=== PATIENT | male | born 1960 | race Caucasian/White ===

== ENCOUNTER 2024-05-21 18:05 | Inpatient (IN) | payer BC ==
[~2024-05-21] VITALS: Ht 172.7 cm; Wt 89.8 kg
[2024-05-21] VITALS (9 sets, daily range): BP systolic 100–130; BP diastolic 61–91; PULSE 69–91; RESP 22–34; TEMP 98.2–98.7; O2SAT 98
[2024-05-21 18:27] LABS: BASOPHILS # (AUTO) 0.07 K/uL (0.00-0.20); BASOPHILS % (AUTO) 0.4 % (0.0-5.0); EOSINOPHILS # (AUTO) 0.04 K/uL (0.00-0.70); EOSINOPHILS % (AUTO) 0.2 % (0.0-8.0); HEMATOCRIT 50.2 % (42-54); LYMPHOCYTES # (AUTO) 1.1 K/uL (1.0-4.8); MEAN CORPUSCULAR HEMOGLOBIN 27.6 pg (27.0-33.0); MEAN CORPUSCULAR HGB CONC 32.5 g/dL (32.0-36.0); MEAN CORPUSCULAR VOLUME 85.1 fL (79-99); MONOCYTES # (AUTO) 0.7 K/uL (0.1-1.0); MONOCYTES % (AUTO) 3.7 % (3.0-13.0); NEUTROPHILS % (AUTO) 89.1 % (40.0-77.0); PLATELET COUNT (AUTO) 390 K/uL (130-400); RED CELL DISTRIBUTION WIDTH 12.6 % (11.0-15.5); WHITE BLOOD COUNT (AUTO) 17.9 K/uL (4.8-10.8)
[2024-05-21 18:35] LABS: CREATININE 1.7 mg/dL (0.5-1.3)
[2024-05-21 18:36] LABS: INR 1.04 (0.85-1.15)
[2024-05-21 18:37] LABS: PARTIAL THROMBOPLASTIN TIME 26.8 SEC (26.3-35.5)
[2024-05-21] MEDS: MIDAZOLAM HCL 5 MG/ML 2ML VIAL IV ONE ×2 (18:45→19:00)
[2024-05-21 18:47] LABS: B-TYPE NATRIURETIC PEPTIDE 43 pg/mL (0-100)
[2024-05-21 18:51] LABS: MAGNESIUM 1.8 mg/dL (1.80-2.40)
[2024-05-21] MEDS: 0.9%NACL 1000ML 1,000 ML IV ONE (18:59)
[2024-05-21] MEDS ORDERED: 0.9%NACL 1000ML 1,000 ML IV SCH (19:00)
[2024-05-21] MEDS: metoPROLOL tartRATE 1 MG/ML 5ML VIAL IV ONE (19:00)
[2024-05-21] MEDS: MIDAZOLAM HCL 1 MG/ML 2ML VIAL ONE (19:00)
[2024-05-21] MEDS ORDERED: MIDAZOLAM HCL 1 MG/ML 5ML VIAL IVP ONE (19:00)
--- NOTE | 2024-05-21 19:09 | ERN ---
General Chief Complaint: Palpitations Stated Complaint: PALPITATIONS Time Seen by MD: 18:08 Source: patient History of Present Illness Initial Comments PATIENT IS A 63-YEAR-OLD MALE COMING IN TO BE EVALUATED FOR RACING HEART. PER EMS PATIENT HAS A HEART RATE OF IN THE 250S AND WAS SHOCKED DUE TO HYPOTENSION. PATIENT DOES HAVE A HISTORY OF A ARRHYTHMIAS. Allergies: Uncoded Allergies: nka (Allergy, Unknown, 05/21/24) Past Medical History Past Medical History: A-Fib, Diabetes-Type II Medical History Other: ABLATION, OBESE Past Surgical History: None ROS Dictation CONSTITUTIONAL: NO CHILLS, NO FEVER, NO WEAKNESS, DIAPHORESIS, NO MALAISE. HEAD/FACE: NO SIGNS OF TRAUMA. EENT: NO EYE PAIN, NO BLURRED VISION, NO TEARING, NO DOUBLE VISION, NO EAR PAIN, NO EAR DISCHARGE, NO NOSE PAIN, NO NASAL CONGESTION, NO THROAT PAIN, NO THROAT SWELLING, NO MOUTH PAIN. RESPIRATORY: NO COUGH, NO ORTHOPNEA, NO SOB, NO STRIDOR, NO WHEEZING. CARDIOVASCULAR: NO CHEST PAIN, NO EDEMA, NO PALPITATIONS, NO SYNCOPE. GASTROINTESTINAL/ABDOMINAL: NO ABDOMINAL PAIN, NO CONSTIPATION, NO DIARRHEA, NO NAUSEA, NO VOMITING. GENITOURINARY: NO ABNORMAL DISCHARGE, NO DYSURIA, NO FREQUENT URINATION, NO HEMATURIA. NO COMPLAINTS OF PAIN IN THE GENITALS. MUSCULOSKELETAL: NO BACK PAIN, NO GOUT, NO JOINT PAIN, NO JOINT SWELLING, NO MUSCLE PAIN, NO MUSCLE STIFFNESS, NO NECK PAIN. INTEGUMENTARY: NO CHANGE IN COLOR, NO CHANGE IN HAIR/NAILS, NO DRYNESS, NO LESION, NO LUMPS, NO RASH. NEUROLOGICAL/PSYCH: NO ANXIETY, NOT DEPRESSED, NO EMOTIONAL PROBLEM, NO HEADACHE, NO NUMBNESS, NO PRE-EXISTING DEFICIT, NO HISTORY OF SEIZURES, NO TREMORS, NO WEAKNESS. HEMATOLOGIC/LYMPHATIC: NOT ANEMIC, NO HISTORY OF BLOOD CLOTS, NO APPARENT BLEEDING, NO BRUISING, GLANDS NOT SWOLLEN. ALL SYSTEMS NEGATIVE, EXCEPT NOTED. Physical Exam Physical Exam Dictation VITAL SIGNS: REVIEWED. GENERAL APPEARANCE: ALERT, ORIENTED X3, NO ACUTE DISTRESS, OBESE. HEAD AND FACE: NON-TRAUMATIC. EYES: PERRL, PINK CONJUNCTIVAS, EYELID NO TRAUMA, ANTERIOR CHAMBER CLEAR. EARS: PINNAS INTACT AND NO SIGNS OF TRAUMA OR ERYTHEMA. EAR CANALS CLEAR AND NO DISCHARGE. TMS NO ERYTHEMA. NOSE: NO DISCHARGE, NO BLEEDING. OROPHARYNX: MOUTH NORMAL, TEETH NO CARIES, TONGUE PINK. PHARYNX CLEAR, NO ERYT GIOVANNY. TONSILS NO EXUDATES, NO ABSCESSES NOTED. MUCOUS MEMBRANE MOIST. NECK: SUPPLE, NON-TENDER, NO THYROMEGALY, NO MASSES, NO JVD, NO BRUITS. BREAST: DEFERRED. CHEST: NO TENDERNESS, NO CREPITUS, NO PARADOXICAL MOVEMENT, NO RETRACTIONS. LUNGS: CLEAR, WELL-VENTILATED, SYMMETRIC, NO RALES, NO WHEEZING, NO RHONCHI, NO STRIDOR, GOOD BREATH SOUNDS BILATERALLY. HEART: REGULAR RATE, REGULAR RHYTHM, NO MURMUR, NO GALLOPS. VASCULAR: NO PERIPHERAL EDEMA. ABDOMEN: SOFT, POSITIVE BOWEL SOUNDS, NONDISTENDED, NO GUARDING, NONTENDER, NO REBOUND, NO MASSES NO HEPATOMEGALY, NO SPLENOMEGALY, NO GOULD'S SIGN, NO HERNIAS. RECTAL: DEFERRED. GENITAL: DEFERRED. NEUROLOGICAL: NORMAL SPEECH, GROSS MOTOR FUNCTION INTACT, GROSS SENSORY FUNCTION INTACT. MUSCULOSKELETAL: NECK NONTENDER, FULL RANGE OF MOTION, BACK NONTENDER, FULL RANGE OF MOTION. EXTREMITIES: NONTENDER, FULL RANGE OF MOTION. SKIN: COLOR PINK, DRY, NO TURGOR, NO RASH, NO LACERATIONS, NO ABRASIONS, NO CONTUSIONS. LYMPHATICS: DEFERRED. Results Laboratory and Microbiology Lab and Micro Result Laboratory Tests Test 05/21/24 18:20 White Blood Count 17.9 K/uL (4.8-10.8) H Red Blood Count 5.90 MIL/uL (4.50-6.20) Hemoglobin 16.3 g/dL (14.0-18.0) Hematocrit 50.2 % (42-54) Mean Corpuscular Volume 85.1 fL (79-99) Mean Corpuscular Hemoglobin 27.6 pg (27.0-33.0) Mean Corpuscular Hemoglobin Concent 32.5 g/dL (32.0-36.0) Red Cell Distribution Width 12.6 % (11.0-15.5) Platelet Count 390 K/uL (130-400) Mean Platelet Volume 9.6 fL (7.5-10.5) Immature Granulocyte % (Auto) 0.6 % (0-1) Neutrophils (%) (Auto) 89.1 % (40.0-77.0) H Lymphocytes (%) (Auto) 6.0 % (21.0-51.0) L Monocytes (%) (Auto) 3.7 % (3.0-13.0) Eosinophils (%) (Auto) 0.2 % (0.0-8.0) Basophils (%) (Auto) 0.4 % (0.0-5.0) Neutrophils # (Auto) 16.0 K/uL (1.8-7.7) H Lymphocytes # (Auto) 1.1 K/uL (1.0-4.8) Monocytes # (Auto) 0.7 K/uL (0.1-1.0) Eosinophils # (Auto) 0.04 K/uL (0.00-0.70) Basophils # (Auto) 0.07 K/uL (0.00-0.20) Absolute Immature Granulocyte (auto 0.10 K/uL (0-1) Nucleated Red Blood Cells 0.0 % (0.0-0.19) White Cell Morphology Comment See comments Prothrombin Time 11.0 SEC (9.6-11.6) Prothromb Time International Ratio 1.04 (0.85-1.15) Activated Partial Thromboplast Time 26.8 SEC (26.3-35.5) Sodium Level 137 mmol/L (136-145) Potassium Level 5.0 mmol/L (3.5-5.1) Chloride Level 99 mmol/L (101-111) L Carbon Dioxide Level 27 mmol/L (21-32) Blood Urea Nitrogen 22 mg/dL (7-18) H Creatinine 1.7 mg/dL (0.5-1.3) H Glomerular Filtration Rate Calc 44 mL/min (>90) Random Glucose 241 mg/dL (70-105) H Total Calcium 9.0 mg/dL (8.5-10.1) Magnesium Level 1.80 mg/dL (1.80-2.40) Total Creatine Kinase 53 U/L (21-232) Troponin I High Sensitivity 160 ng/L (4-75) *H B-Type Natriuretic Peptide 43 pg/mL (0-100) Labs Reviewed?: Yes EKG/XRAY/US/CT/MRI EKG Comment EKG 1ST ONE 05/21/2024 TIME 6:15 P.M. VENTRICULAR RATE 224 EXTREME TACHYCARDIA WIDE COMPLEX 2ND EKG 05/21/2024 TIME 7:00 P.M. VENTRICULAR RATE [address] WAVE ELEVATION OR DEPRESSION MDM MDM: Differential diagnosis: Rationale: Tests considered and ordered secondary to shared decision making include: labs, ECG and radiology Previous outside records reviewed: Old ER visits. Risk of complication and/or morbidity or mortality of patient management: None Medications-Per medication reconciliation Need for hospitalization: Patient does meet criteria for hospitalization. Need for emergency major/minor surgery: No There are no social concerns with this patient. Prescription drug management Prescriptions will include symptomatic care Patient's prior external medical records from other ER visits were reviewed by me as indicated. Prior testing and results from previous visits were reviewed. Prior tests were taken into account with medical decision making and resource utilization, independent historian/historians were used to obtain complete medical history. I independently interpreted the test that were performed, results were reviewed by me and considered findings on radiology if ordered. Medical management and examination interpretation discussions were had by me with other qualified healthcare professionals as indicated for the patient's care. ED Course Orders Procedure Category Date Status Time Cbc With Differential LAB 05/21/24 Complete 18:08 Prothrombin Time With LAB 05/21/24 Complete INR 18:08 B-Type Natriuretic LAB 05/21/24 Complete Peptide 18:08 Chest 1vw RAD 05/21/24 Resulted 18:08 12 Lead Ekg Tracing- EKG 05/21/24 Resulted Technical 18:08 Magnesium LAB 05/21/24 Complete 18:08 Creatine Kinase, Total LAB 05/21/24 Complete 18:08 Troponin I High LAB 05/21/24 Complete Sensitivity 18:08 Urinalysis Profile LAB 05/21/24 Logged 18:08 Partial LAB 05/21/24 Complete Thromboplastin Time 18:08 Basic Metabolic Panel LAB 05/21/24 Complete 18:08 0.9%Nacl 1000ml (Ns PHA 05/21/24 Complete 1000ml) 18:38 Midazolam Hcl (Versed) PHA 05/21/24 Complete 18:38 0.9%Nacl 1000ml (Ns PHA 05/21/24 Complete 1000ml) 19:00 Midazolam Hcl (Versed) PHA 05/21/24 Complete 18:41 Midazolam Hcl (Versed) PHA 05/21/24 Complete 19:00 Metoprolol Tartrate PHA 05/21/24 Complete (Lopressor) 18:46 Diltiazem 125 Mg/25 PHA 05/21/24 Complete Ml Inj (Diltiazem 12 18:51 Midazolam Hcl (Versed) PHA 05/21/24 Complete 19:00 12 Lead Ekg Tracing- EKG 05/21/24 Resulted Technical 18:57 Phenylephrine Hcl PHA 05/21/24 In Process (Phenylephrine Hcl) 19:30 Phenylephrine Hcl PHA 05/21/24 Complete (Phenylephrine Hcl) 19:10 12 Lead Ekg Tracing- EKG 05/21/24 Resulted Technical 19:30 Heparin 25,000 PHA 05/21/24 In Process Units/250ml D5w 20:00 Heparin 5,000 Unit PHA 05/21/24 Complete Vial (Heparin 5,000 U 20:00 Cardiology Consult CONPHYSVC 05/21/24 Transmitted 20:10 *Nursing CPOE 05/21/24 Transmitted Communication: 20:12 Echo 2-D Complete ECHO 05/21/24 Logged 20:27 Current Medications Medications (Trade) Dose Ordered Sig/Paco Route PRN Reason Start Time Stop Time Status Last Admin Dose Admin Diltiazem HCl (dilTIAZem 125MG/ 25 ML INJ) 125 mg STK-MED ONCE IV 05/21/24 18:51 05/21/24 18:51 DC 05/21/24 18:59 Heparin Sodium (Porcine) (HEParin 5,000 UNIT VIAL) 6,000 unit ONCE ONCE IV 05/21/24 20:00 05/21/24 20:01 DC 05/21/24 20:00 Heparin Sodium/ Dextrose 250 ml @ 0 mls/hr PROTOCOL IV 05/21/24 20:00 06/20/24 19:59 05/21/24 20:10 Metoprolol Tartrate (loprESSOR) 5 mg STK-MED ONCE IV 05/21/24 18:46 05/21/24 18:46 DC 05/21/24 19:00 Midazolam HCl (Versed) 2 mg STK-MED ONCE .ROUTE 05/21/24 18:38 05/21/24 18:38 DC Midazolam HCl (Versed) 5 mg ONCE ONCE IV 05/21/24 19:00 05/21/24 19:01 DC 05/21/24 18:45 Midazolam HCl (Versed) 5 mg ONCE ONCE IVP 05/21/24 19:00 05/21/24 18:52 DC Midazolam HCl (Versed) 10 mg STK-MED ONCE IV 05/21/24 18:41 05/21/24 18:41 DC 05/21/24 19:00 Phenylephrine HCl (phenylEPHRINE HCL) 10 mg STK-MED ONCE IV 05/21/24 19:10 05/21/24 19:14 DC Phenylephrine HCl 10 mg/Sodium Chloride 250 ml @ 0 mls/hr PROTOCOL PRN IV PROTOCOL 05/21/24 19:30 06/20/24 19:29 05/21/24 19:19 Sodium Chloride 1,000 ml @ 999 mls/hr Q1H1M IV 05/21/24 19:00 05/21/24 20:12 DC Sodium Chloride 1,000 ml @ As Directed STK-MED ONCE IV 05/21/24 18:38 05/21/24 18:38 DC 05/21/24 18:59 Vital Signs Date Time Temp Pulse Resp B/P (MAP) Pulse Ox O2 Delivery O2 Flow Rate FiO2 05/21/24 20:31 68 20 98/59 97 Nasal Cannula* 4 36 05/21/24 20:12 98.1 117 20 103/71 97 Nasal Cannula* 4 36 05/21/24 19:22 98.8 96 20 91/65 97 Nasal Cannula* 4 36 05/21/24 19:19 70/30 05/21/24 19:00 200 05/21/24 18:59 100 05/21/24 18:54 97 20 72/41 94 Nasal Cannula* 2 28 05/21/24 18:07 98.4 120 23 99/49 93 Nasal Cannula 2.0 DX & DISP Disposition: Inpatient Departure Impression: Primary Impression: Atrial fibrillation with rapid ventricular response Condition: Stable LISA MENDEZ MD May 21, 2024 19:08 NAZ HITCHCOCK MD May 21, 2024 20:48
--- NOTE | 2024-05-21 19:10 | NUR ---
REPORT ENDORSED TO GORGE MATA
[2024-05-21] MEDS: phenylEPHRINE HCL 10 MG/ML 1ML VIAL IV ONE (19:18)
[2024-05-21] MEDS: phenylEPHRINE HCL 10 MG in 0.9% NACL 250ML 250 ML IV PRN (19:19)
--- NOTE | 2024-05-21 19:30 | HMCIMG ---
Chest CLINICAL HISTORY: CP COMPARISON: None TECHNIQUE: Single view of the chest was obtained. FINDINGS: There is moderate pulmonary edema versus diffuse bilateral infiltrates. The cardiac size and mediastinum are unremarkable. The bony structures are within normal limits. IMPRESSION: Pulmonary edema versus infiltrates.
--- NOTE | 2024-05-21 19:50 | EKG ---
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 less likely atrial flutter versus afib Electronically Signed On 05-21-2024 20:20:31 GREEN COFFEE BLENDER by Jazzy Tse Please click the below link to view image of tracing.
--- NOTE | 2024-05-21 19:50 | EKG ---
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
--- NOTE | 2024-05-21 19:50 | EKG ---
[facility] Test Date: 2024-05-21 Test Time: 19:31:48 Pat Name: KELLIE RICARDO Department: ED[facility] Room: Gender: M Home Health Nurse Licensed Practical: [id number] : 1960 Requested By: NAZ HITCHCOCK Order Number: [id number] Reading MD: Jazzy Tse Measurements Intervals [place] Rate: 76 P: 0 [place]: 92 QRS: 73 QRSD: 87 T: 64 QT: 384 QTc: 432 Interpretive Statements Sinus, pac with pauses Electronically Signed On 05-21-2024 20:22:45 REFUSE DRIVER by Jazzy Tse Please click the below link to view image of tracing.
[2024-05-21] MEDS: HEParin 5,000 UNIT VIAL IV ONE (20:00)
[2024-05-21] MEDS: HEParin 25,000 UNITS/250ML D5W 250 ML IV SCH (20:10)
--- NOTE | 2024-05-21 20:26 | CONS ---
CONSULT NOTE: CARDIOLOGY Reason for consult: SVT HPI/story at presentation: This is a pleasant 63-year-old male with past medical history as per present with complaints of tachycardia and was found to have heart rates in the 220s, s /p cardioversion. On pressors and cardiology was consulted because of pauses noted on telemetry. Patient received 1 dose of IV metoprolol. When he was in SVT Subjective: 05/21/2024 lethargic given sedation Past medical history: See below Allergies, Meds See chart Review of systems Constitutional: Negative for chills and fever. HENT: Negative for ear discharge and ear pain. Eyes: Negative for photophobia and discharge. Respiratory: Negative for cough, sputum production and stridor. Cardiovascular: Negative for chest pain and palpitations. Gastrointestinal: Negative for diarrhea and vomiting. Genitourinary: Negative for frequency. Musculoskeletal: Negative for myalgias. Skin: Negative for rash. Neurological: Negative for focal weakness and seizures. Endo/Heme/Allergies: Negative for polydipsia. Psychiatric/Behavioral: Negative for hallucinations. Vitals see chart PHYSICAL EXAMINATION GENERAL: The patient is LETHARGIC 05/21/2024 HEENT: Nonicteric sclerae, non traumatic HEART: Regular rate and rhythm with no murmurs LUNGS: Clear to auscultation bilaterally ABDOMEN: No acute issues, non tender GENITAL, RECTAL: deferred SKIN: No rash NEUROLOGIC: NFND EXTREMITIES: No edema ASSESSMENT SVT At presentation with heart rates in the 220 range With hemodynamic compromise, s/p cardioversion On pressors, 05/21/2024 HISTORY OF ATRIAL FIBRILLATION? Not on any anticoagulation Previous history of ablation x 2 SINUS ARRHYTHMIA/PACS On EKG post cardioversion with multiple pauses The setting of metoprolol use/vagal tone CORE MEASURES pending OTHER MEDICAL PROBLEMS reviewed PLAN 05/21/2024 pauses on telemetry are likely related to beta-jose and patient's lethargy and sedation. Will await eventual weaning off of the effect of beta- jose and will also wean off pressors as able. Current maps are over 75. Improving. Echocardiogram is ordered and pending. Sinus arrhythmia/PACs noted on current EKG. When more alert, will discuss long-term management of current condition with potentially considering repeat ablation/rhythm control agents. Will need records from [place]. ATTESTATION I was involved substantially in the care of this patient Number and complexity of problems addressed: 1 acute illness with systemic features Amount and or complexity of data Review of prior external note(s) from each unique source: 2+ Ordering of each unique test : 0 Review of the result(s) of each unique test: 2+ Assessment requiring an independent historian(s): No Independent interpretation of test performed by another MD/QHCP/appropriate source (not separately reported) : No Discussion of management or test interpretation with external MD/QHCP/approp sajite source (not separately reported) : No Risk status (cardiac, billing related): Moderate SCAR JIMENES MD May 21, 2024 20:26
--- NOTE | 2024-05-21 21:05 | HP ---
[facility] HISTORY AND PHYSICAL Date of Service: May 21, 2024 Time of Service: 21:05 Attending/supervising physicians: Dr. Alfredo Garcia & Dr. Anh Ferrari HISTORY OF PRESENT ILLNESS: Mr. Sanches is a 63-year-old male with a history of AFib, ablation, diabetes mellitus type, and obesity who presented to [facility] via EMS for evaluation of racing heart rate. Per ED physician report, EMS stated that the patient had a heart rate in the 150s beats per minute and was shocked due to hypotension. The patient reports he sees a fish cleaner machine tender in [place]. He states that he sees a fish cleaner machine tender yearly. He reports that last year he had an echocardiogram and was told everything is fine and to follow up within a year. In ED the patient was administered NS1 L bolus, Versed x3 doses, metoprolol tartrate 5 mg IV, diltiazem 125 mg, and was started on phenylephrine IV drip, and heparin IV drip. ED physician reported that only Cardizem bolus was administered due to patient was noted to have pauses. ED RN reported that the patient was cardioverted with [address] Wilson, fish cleaner machine tender was consulted who ordered amiodarone IV drip. Labs: WBCs 17.9, GFR 44, troponin 160, BNP 43. UA positive for ketones, drug screen positive for benzo it is. Influenza, COVID are negative. The patient was admitted with a diagnosis of atrial fibrillation with RVR under the [facility] Hospitalist Team. The patient was assessed by me at bedside. Patient's blood pressure was 107/66, heart rate 70s, AFib controlled rate. The patient was on phenylephrine IV drip and amiodarone IV drip. The patient appeared comfortable, breathing was even, unlabored, in no distress. Patient denied chest pain, shortness of breath, any other pain, problem or concern. I informed patient of labs, diagnostics, current medications administered, and plan of care. The patient verbalized understanding and is in agreement with plan. Plan and assessment are listed below. REVIEW OF SYSTEMS 12-point ROS reviewed with patient. All pertinent positives mentioned above. Otherwise negative, noncontributory, or non-pertinent. PAST MEDICAL HISTORY: As mentioned above PAST SURGICAL HISTORY: Ablation PAST SOCIAL HISTORY: Denied alcohol, tobacco, illicit drug use FAMILY HISTORY: Noncontributory Uncoded Allergies: nka (Allergy, Unknown, 05/21/24) PHYSICAL EXAM GENERAL APPEARANCE: The patient is awake, alert, and oriented, in no acute cardiopulmonary distress. NEUROLOGICAL: Cranial nerves II-XII grossly intact. Motor is 5/5 in bilateral upper and lower extremities proximal to distal. No sensory deficits. HEENT: Face is symmetric. Pupils are equal and reactive. Extraocular movements are intact. NECK: Supple. No JVD. No thyromegaly. No submental, submandibular, pre- /postauricular, occipital or supraclavicular lymphadenopathy. CHEST: Normal chest expansion. No Telemetry. LUNGS: Absence of any rales, rhonchi or any wheezing. CARDIOVASCULAR: Irregular, HR 70s BPM. S1 and S2 normal. No appreciable rubs, murmurs or gallops. ABDOMEN: Obese, Soft, nontender, and nondistended. There is no rebound, voluntary guarding, or rigidity. : Deferred. No Colón. EXTREMITIES: Non-edematous and not cyanotic. No clubbing. Good capillary refill. SKIN: No skin breakdown. Vital Sign (Last 24 Hours) 05/21/24 05/21/24 20:12 20:54 Temp 98.1 Pulse 78 Resp 27 B/P (MAP) 100/64 Pulse Ox 99 O2 Delivery Nasal Cannula* O2 Flow Rate 4 FiO2 36 LABS: Laboratory: Test 05/21/24 18:20 Range/Units White Blood Count 17.9 H 4.8-10.8 K/uL Red Blood Count 5.90 4.50-6.20 MIL/uL Hemoglobin 16.3 14.0-18.0 g/dL Hematocrit 50.2 42-54 % Mean Corpuscular Volume 85.1 79-99 fL Mean Corpuscular Hemoglobin 27.6 27.0-33.0 pg Mean Corpuscular Hemoglobin Concent 32.5 32.0-36.0 g/dL Red Cell Distribution Width 12.6 11.0-15.5 % Platelet Count 390 130-400 K/uL Mean Platelet Volume 9.6 7.5-10.5 fL Immature Granulocyte % (Auto) 0.6 0-1 % Neutrophils (%) (Auto) 89.1 H 40.0-77.0 % Lymphocytes (%) (Auto) 6.0 L 21.0-51.0 % Monocytes (%) (Auto) 3.7 3.0-13.0 % Eosinophils (%) (Auto) 0.2 0.0-8.0 % Basophils (%) (Auto) 0.4 0.0-5.0 % Neutrophils # (Auto) 16.0 H 1.8-7.7 K/uL Lymphocytes # (Auto) 1.1 1.0-4.8 K/uL Monocytes # (Auto) 0.7 0.1-1.0 K/uL Eosinophils # (Auto) 0.04 0.00-0.70 K/uL Basophils # (Auto) 0.07 0.00-0.20 K/uL Absolute Immature Granulocyte (auto 0.10 0-1 K/uL Nucleated Red Blood Cells 0.0 0.0-0.19 % White Cell Morphology Comment See comments Prothrombin Time 11.0 9.6-11.6 SEC Prothromb Time International Ratio 1.04 0.85-1.15 Activated Partial Thromboplast Time 26.8 26.3-35.5 SEC Sodium Level 137 136-145 mmol/L Potassium Level 5.0 3.5-5.1 mmol/L Chloride Level 99 L 101-111 mmol/L Carbon Dioxide Level 27 21-32 mmol/L Blood Urea Nitrogen 22 H 7-18 mg/dL Creatinine 1.7 H 0.5-1.3 mg/dL Glomerular Filtration Rate Calc 44 >90 mL/min Random Glucose 241 H 70-105 mg/dL Total Calcium 9.0 8.5-10.1 mg/dL Magnesium Level 1.80 1.80-2.40 mg/dL Total Creatine Kinase 53 21-232 U/L Troponin I High Sensitivity 160 *H 4-75 ng/L B-Type Natriuretic Peptide 43 0-100 pg/mL Current Medications Medications (Trade) Dose Ordered Sig/Paoc Route PRN Reason Start Time Stop Time Status Last Admin Dose Admin Heparin Sodium/ Dextrose 250 ml @ 0 mls/hr PROTOCOL IV 05/21/24 20:00 06/20/24 19:59 05/21/24 20:10 14.29 MLS/HR Phenylephrine HCl 10 mg/Sodium Chloride 250 ml @ 0 mls/hr PROTOCOL PRN IV PROTOCOL 05/21/24 19:30 06/20/24 19:29 05/21/24 19:19 126.6 MLS/HR Sodium Chloride 1,000 ml @ 999 mls/hr Q1H1M IV 05/21/24 19:00 05/21/24 20:12 DC DIAGNOSTICS / RADIOLOGY: [ ] ASSESSMENT: Cardiogenic shock, POA AFib with RVR, POA, s/p cardioversion on 05/21/24 by EMS and ED Hypotension, not responsive to IV fluids, in need of pressor Elevated troponin, POA Leukocytosis, POA Acute renal insufficiency, GFR 44 (no prior GFR to compare) Dehydration/ketonuria Diabetes mellitus with hyperglycemia Hypercholesteremia Obesity, BMI 30.1 PLAN: Admit to ICU with continuous telemetry monitoring and pulse oximetry monitoring. Continue amiodarone IV drip per protocol. Continue phenylephrine IV drip. Titrate to keep map above 65. Continue heparin IV drip per protocol. Troponin levels and EKGs series. Cardiology was consulted by ED. 2D echo in a.m. with Dr. Tse's team to read. P.r.n. medications for pain management, nausea, vomiting, fever, constipation. Oxygen supplementation as needed to maintain oxygen level equal to greater than 92%. Atorvastatin 40 mg p.o. daily. Strict I&Os. Vital signs per ICU. Reconcile home medications once available. Glucometer checks a.c. and HS with insulin regular sliding scale per protocol. Monitor renal and liver function. Monitor electrolytes and treat accordingly. Obtained UA, flu, covid swabs, UDS. A.m. labs: CBC, BNP, Mag, phos, TSH, A1c, troponin. DVT and GI prophylaxis: Heparin and Protonix. ADVANCED CARE PLANNING 1. Which of the following were discussed? Hospice Care - No Therapeutic options - Yes Advance Directives - Yes Other discussions - 2. Discussed with who? Patient 3. Voluntary nature of this service was explained to the patient? Yes 4. Amount of critical care time spent - __Over 45 minutes. Due to a high probability for clinically significant, life-threatening deterioration, the patient required my highest level of preparedness to intervene emergently, and I personally spent over 45 minutes of critical care time directly and personally managing the patient. I devoted my full attention to the patient during this time, which is separate from time spent on any billable procedures. This includes time spent involved in work directly related to the care of the patient: such as review of prior records, development of treatment plan with patient as well as nursing, discussions with consultants, evaluation of patient's response to treatment, examination of patient, obtaining history from patient, ordering and performing treatments and interventions, ordering and review of laboratory studies, ordering and review of radiographic studies, pulse oximetry and re-evaluation of patient's condition, discussions with the family members and the patient, and any required documentation. This critical care time was performed to assess and manage the high probability of imminent life-threatening deterioration that could result in multi-organ failure. 5. Reviewed by Physician? (if this service was performed by PAMELA) Yes ADDENDUM: ATTENDING PHYSICIAN ATTESTATION: I have seen and discussed this patient with the midlevel and I agree with their plan. See my addendum for updates to the medical plan MD MIMA Mcqueen [facility] May 21, 2024 21:05 LANA FERRARI MD May 22, 2024 15:22
[2024-05-21] MEDS ORDERED: acetaMINOPHEN 650 MG SUPPOSITORY RC PRN (21:30)
[2024-05-21] MEDS ORDERED: PoTASSium chloRIDE 10MEQ SR 10 MEQ/TAB TAB.SR.24H PO PRN (21:30)
[2024-05-21] MEDS ORDERED: PoTASSium chloRIDE 10MEQ/100ML 100 ML IV PRN (21:30)
[2024-05-21] MEDS ORDERED: LACTULOSE 20 GM/30 ML UDCUP PO PRN (21:30)
[2024-05-21] MEDS ORDERED: TEMAZepam 15 MG CAPSULE PO PRN (21:30)
[2024-05-21] MEDS ORDERED: GLUCAGON 1MG KIT 1 MG ML IM PRN (21:30)
[2024-05-21] MEDS ORDERED: PoTASSium chl 10% ELIXIR 20MEQ 20 MEQ/15 ML UDCUP PO PRN (21:30)
[2024-05-21] MEDS ORDERED: acetaMINOPHEN 325 MG TAB PO PRN (21:30)
[2024-05-21] MEDS ORDERED: ondanSETRON 4MG INJ IVP PRN (21:30)
[2024-05-21] MEDS ORDERED: doCUSate SODIUM 100 MG CAP PO PRN (21:30)
[2024-05-21] MEDS ORDERED: DEXTROSE 50%-WATER 50 ML DISP.SYRIN IV PRN (21:30)
--- NOTE | 2024-05-21 21:31 | NUR ---
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
[2024-05-21] MEDS: MAGNESIUM 2GM PREMIX 50ML 50 ML IV PRN (21:40)
[2024-05-21] MEDS: AMIOdarone 900MG VIAL 360 MG in DEXTROSE 5%-WATER 200 ML IV SCH (23:25)
[2024-05-22] VITALS (59 sets, daily range): BP systolic 87–128; BP diastolic 37–71; PULSE 62–80; RESP 19–32; TEMP 98–98.6; O2SAT 95–98
[2024-05-22] MEDS: phenylEPHRINE HCL 10 MG in 0.9% NACL 250ML 250 ML IV PRN (00:34)
--- NOTE | 2024-05-22 01:13 | NUR ---
swabs pt swabbed for flu and covid but refused strep swab
[2024-05-22] MEDS ORDERED: METF-444 PO (01:27)
[2024-05-22] MEDS ORDERED: AEC81 PO (01:27)
[2024-05-22 01:32] LABS: SARS-CoV-2, RNA, NAAT NEGATIVE SARS CoV-2 (NEGATIVE)
[2024-05-22 01:42] LABS: APPEARANCE,URINE CLEAR (CLEAR); BILIRUBIN,URINE NEGATIVE (NEGATIVE); COLOR,URINE COLORLESS (YELLOW); GLUCOSE, URINE (UA) NEGATIVE (NEGATIVE); KETONES,URINE 5 mg/dL (NEGATIVE); LEUKOCYTE ESTERASE ,URINE NEGATIVE Leu/uL (NEGATIVE); NITRATE,URINE NEGATIVE (NEGATIVE); OCCULT BLOOD,URINE NEGATIVE (NEGATIVE); PROTEIN,URINE NEGATIVE (NEGATIVE); UROBILINOGEN,URINE 0.2 mg/dL (0.2-1.0)
[2024-05-22 01:45] LABS: ADD UA MICROSCOPIC YES
[2024-05-22 01:47] LABS: MUCUS,URINE RARE LPF (None Seen); SQUAMOUS EPITHELIAL CELL,UR RARE /HPF (0-2); WBC,URINE 0-1 /HPF (0-1)
[2024-05-22 01:49] LABS: AMPHET/METH SCREEN,URINE NEGATIVE (NEGATIVE); BARBITURATE SCREEN, URINE NEGATIVE (NEGATIVE); BENZODIAZEPINES SCREEN,URINE POSITIVE (NEGATIVE); CANNABINOID SCREEN,URINE NEGATIVE (NEGATIVE); COCAINE SCREEN,URINE NEGATIVE (NEGATIVE); OPIATE SCREEN,URINE NEGATIVE (NEGATIVE); PHENCYCLIDINE SCREEN,URINE NEGATIVE (NEGATIVE)
[2024-05-22 01:55] LABS: INFLUENZA TYPE A Negative For Type A (NEGATIVE); INFLUENZA TYPE B Negative For Type B (NEGATIVE)
--- NOTE | 2024-05-22 01:56 | CONS ---
[facility] CONSULTATION NOTE Date Patient Seen: May 22, 2024 Time of Visit: 01:56 Supervising Physician: Dr Ru No Reason for Consultation: ICU pain management nurse physician Physician: Hospitalist group Outpatient Specialists: [ ] Inpatient Consults: Cardiology PROBLEM LIST: Acute coronary syndrome, POA Paroxysmal SVT, status post cardioversion x2, currently on heparin and amiod arone drip Acute hypoxic respiratory failure, POA Possible congestive heart failure, POA Atrial fibrillation with RVR NSTEMI, POA DM type 2, POA Obesity, BMI of 30.1, POA PLAN: Continue ICU care Continue cardiac monitoring Continue O2 therapy Keep O2 saturation above 90% DuoNeb q.6 as needed for shortness of breaths Consider diuretics Continue amiodarone and heparin drip Cardiology on board Keep SBP less than 160 Stat EKG and troponin level of with chest pain Trend troponin level ISS and fingerstick per unit protocol Keep serum glucose less than 150 P.r.n. hydralazine and labetalol BP monitoring per ICU protocol Keep potassium level above four, magnesium level above two Bilateral SCDs Facilitate 2D echo Replete electrolyte accordingly Facilitate 2D echo Rest of plan care of primary/cardiology HPI: 63-year-old male with past medical history of atrial fibrillation status post cardiac ablation, DM type 2, obesity, who presented to ED via EMS with complaint of chest pain and found to have SVT requiring cardioversion. 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 Patient then underwent cardioversion by EMS staff. Afterwards patient was sent to ED for further medical evaluation. In ED still with significant SVT with heart rate into 200, after adequate sedation patient was given 200 joules of cardioversion, patient was subsequently started on heparin and amiodarone drip. However he became acutely hypotensive likely secondary to Versed push. He was started on Antonio drip afterwards. [facility] consulted for critical care evaluation in ICU management. Patient was seen and examined in ICU with no relatives present at bedside. At present patient is currently hemodynamically stable, normal sinus rhythm on the monitor, on amiodarone, heparin, and Antonio drip. Patient denies any headache, chest pain, shortness of breath, abdominal pain, cough, fever, or flu-like symptoms. Patient denies any smoking; drinks occasionally, and denies use of drugs. PAST MEDICAL HX: see above PAST SURGICAL HX: noncontributory SOCIAL HISTORY: No tobacco, ETOH, or illicit drug use Uncoded Allergies: nka (Allergy, Unknown, 05/21/24) REVIEW OF SYSTEMS: 12 point ROS reviewed with patient. Pertinent positives mentioned above. Otherwise negative. PHYSICAL EXAM: GENERAL: alert, weak, awake oriented x 3 HEENT: EOMI, Sclera non icteric, moist mucosa NECK: Supple, no JVD, trachea midline LUNGS: Clear breath sounds bilaterally. No wheezes HEART: Regular rate and rhythm. Normal S1 and S2, without murmurs ABD: Abdomen soft, nontender. Bowel sounds present EXT: No clubbing cyanosis or edema NEURO: Alert and oriented to person, follows commands Vital Signs (last 8hr) Date Time Temp Pulse Resp B/P (MAP) Pulse Ox O2 Delivery O2 Flow Rate FiO2 05/22/24 00:34 102/56 05/22/24 00:00 67 23 102/58 (73) 97 28 05/21/24 23:45 69 23 100/61 (74) 98 05/21/24 23:30 71 23 105/63 (77) 98 05/21/24 23:15 72 22 108/65 (79) 98 05/21/24 23:00 71 28 112/71 (85) 98 05/21/24 22:45 98.2 73 30 112/76 (88) 97 28 05/21/24 22:30 98 Nasal Cannula* 2 28 05/21/24 22:30 70 29 107/66 (80) 97 05/21/24 22:16 73 26 111/63 (79) 97 05/21/24 22:12 91 34 130/91 (104) 98 28 05/21/24 22:08 74 20 114/63 99 Nasal Cannula* 4 36 05/21/24 21:25 75 22 108/59 99 Nasal Cannula* 4 36 05/21/24 21:09 98.8 75 22 97/52 99 Nasal Cannula* 4 36 05/21/24 21:08 97/52 05/21/24 20:54 78 27 100/64 99 Nasal Cannula* 4 36 05/21/24 20:31 68 20 98/59 97 Nasal Cannula* 4 36 05/21/24 20:12 98.1 117 20 103/71 97 Nasal Cannula* 4 36 05/21/24 19:22 98.8 96 20 91/65 97 Nasal Cannula* 4 36 05/21/24 19:19 70/30 05/21/24 19:00 200 05/21/24 18:59 100 05/21/24 18:54 97 20 72/41 94 Nasal Cannula* 2 28 05/21/24 18:07 98.4 120 23 99/49 93 Nasal Cannula 2.0 LABS: Hematology Labs: Test 05/21/24 18:20 Range/Units White Blood Count 17.9 H 4.8-10.8 K/uL Red Blood Count 5.90 4.50-6.20 MIL/uL Hemoglobin 16.3 14.0-18.0 g/dL Hematocrit 50.2 42-54 % Mean Corpuscular Volume 85.1 79-99 fL Mean Corpuscular Hemoglobin 27.6 27.0-33.0 pg Mean Corpuscular Hemoglobin Concent 32.5 32.0-36.0 g/dL Red Cell Distribution Width 12.6 11.0-15.5 % Platelet Count 390 130-400 K/uL Mean Platelet Volume 9.6 7.5-10.5 fL Immature Granulocyte % (Auto) 0.6 0-1 % Neutrophils (%) (Auto) 89.1 H 40.0-77.0 % Lymphocytes (%) (Auto) 6.0 L 21.0-51.0 % Monocytes (%) (Auto) 3.7 3.0-13.0 % Eosinophils (%) (Auto) 0.2 0.0-8.0 % Basophils (%) (Auto) 0.4 0.0-5.0 % Neutrophils # (Auto) 16.0 H 1.8-7.7 K/uL Lymphocytes # (Auto) 1.1 1.0-4.8 K/uL Monocytes # (Auto) 0.7 0.1-1.0 K/uL Eosinophils # (Auto) 0.04 0.00-0.70 K/uL Basophils # (Auto) 0.07 0.00-0.20 K/uL Absolute Immature Granulocyte (auto 0.10 0-1 K/uL Nucleated Red Blood Cells 0.0 0.0-0.19 % White Cell Morphology Comment See comments Chemistry Labs: Test 05/21/24 18:20 Range/Units Sodium Level 137 136-145 mmol/L Potassium Level 5.0 3.5-5.1 mmol/L Chloride Level 99 L 101-111 mmol/L Carbon Dioxide Level 27 21-32 mmol/L Blood Urea Nitrogen 22 H 7-18 mg/dL Creatinine 1.7 H 0.5-1.3 mg/dL Glomerular Filtration Rate Calc 44 >90 mL/min Random Glucose 241 H 70-105 mg/dL Total Calcium 9.0 8.5-10.1 mg/dL Magnesium Level 1.80 1.80-2.40 mg/dL Total Creatine Kinase 53 21-232 U/L Troponin I High Sensitivity 160 *H 4-75 ng/L B-Type Natriuretic Peptide 43 0-100 pg/mL Coagulation Labs: Test 05/21/24 18:20 Range/Units Prothrombin Time 11.0 9.6-11.6 SEC Prothromb Time International Ratio 1.04 0.85-1.15 Activated Partial Thromboplast Time 26.8 26.3-35.5 SEC DIAGNOSTICS / RADIOLOGY RESULTS: Chest CLINICAL HISTORY: CP COMPARISON: None TECHNIQUE: Single view of the chest was obtained. FINDINGS: There is moderate pulmonary edema versus diffuse bilateral infiltrates. The cardiac size and mediastinum are unremarkable. The bony structures are within normal limits. IMPRESSION: Pulmonary edema versus infiltrates. PLAN NEURO: Minimize central acting medications as possible. Fall Precautions. Well lighted room through the day and minimize interruptions through the night to prevent acute delirium. PULMONARY: Supplemental 02 as needed Titrate Fio2 to keep Spo2 > or = 90% DuoNebs and CPT as needed IS hourly while awake for pulmonary hygiene Out of bed to chair as tolerated CARDIOVASCULAR: Follow hemodynamics. Titrate vasopressor to keep MAP >65 or systolic blood pressure >95mmHg DIPS: Heparin, amiodarone, Antonio drip LINES: PIV GI & NUTRITION: NPO Continue nutritional support Aspirations precautions Prokinetic agents and laxatives as needed KIDNEYS & ELECTROLYTES: Strict monitoring of intake and output Daily weights Avoid nephrotoxic agents Monitor electrolytes and replace as needed Goal urine output of 30mL/hr or 0.5mL/kg/hr ENDOCRINE: Maintain blood glucose between 100-180 at all times. Insulin sliding scale for blood glucose management INFECTIOUS DISEASE: Trend temperature. Montes-culture if febrile. Micro: [ ] Antibiotics: [ ] HEMATOLOGY & COAGULATION: Monitor H&H. Keep Hgb > 7 Transfuse 1 unit of PRBC for Hgb < 7 Transfuse 1 pack of platelets of platelets < 20, 000 Watch for any signs and symptoms of bleeding SKIN: Pressure ulcer prevention per facility protocol Rehab: PT/OT Prophylaxis: GI: [ ] DVT: Heparin drip Code Status: Full Resuscitation Disposition: ICU Other: Total patient care time exceeds 35 minutes excluding all procedures. Supervising physician: Dr Ru MARADIAGAOGCAROLINA BEATER ROOM SUPERVISOR May 22, 2024 01:56
[2024-05-22 05:05] LABS: HEMOGLOBIN A1C 8.7 % (4.0-6.0)
[2024-05-22 05:10] LABS: HEMATOCRIT 42.7 % (42-54); MEAN CORPUSCULAR VOLUME 84.7 fL (79-99); RED BLOOD CELL COUNT(AUTO) 5.04 MIL/uL (4.50-6.20); RED CELL DISTRIBUTION WIDTH 12.9 % (11.0-15.5)
[2024-05-22 05:12] LABS: POTASSIUM 4.1 mmol/L (3.5-5.1)
[2024-05-22 05:26] LABS: CREATININE 0.9 mg/dL (0.5-1.3); MAGNESIUM 2.3 mg/dL (1.80-2.40); PHOSPHORUS 4.3 mg/dL (2.5-4.9); THYROID STIMULATING HORMONE 1.28 uIU/mL (0.36-3.74)
[2024-05-22] MEDS: AMIOdarone 900MG VIAL 540 MG in DEXTROSE 5%-WATER 300 ML IV SCH (05:30)
[2024-05-22] MEDS: INSULIN humuLIN R 100 UNIT/ML 3ML SQ SCH (05:50)
--- NOTE | 2024-05-22 06:10 | EKG ---
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
[2024-05-22] MEDS: PANTOPrazole 40 MG/VIAL IVP SCH (08:47)
[2024-05-22] MEDS ORDERED: ASPIRIN 81MG CHEW TAB PO SCH (09:00)
--- NOTE | 2024-05-22 09:40 | NUR ---
DR FERRARI ROUNDED. ORDERS RECEIVED FOR BLOOD CULTURES.
--- NOTE | 2024-05-22 11:10 | PN ---
CARDIOLOGY Reason for consult: SVT HPI/story at presentation: This is a pleasant 63-year-old male with past medical history as per present with complaints of tachycardia and was found to have heart rates in the 220s, s/p cardioversion. On pressors and cardiology was consulted because of pauses noted on telemetry. Patient received 1 dose of IV metoprolol. When he was in SVT Subjective: 05/21/2024 lethargic given sedation 05/22/2024 no complaints Past medical history: See below Allergies, Meds See chart Review of systems Constitutional: Negative for chills and fever. HENT: Negative for ear discharge and ear pain. Eyes: Negative for photophobia and discharge. Respiratory: Negative for cough, sputum production and stridor. Cardiovascular: Negative for chest pain and palpitations. Gastrointestinal: Negative for diarrhea and vomiting. Genitourinary: Negative for frequency. Musculoskeletal: Negative for myalgias. Skin: Negative for rash. Neurological: Negative for focal weakness and seizures. Endo/Heme/Allergies: Negative for polydipsia. Psychiatric/Behavioral: Negative for hallucinations. Vitals see chart PHYSICAL EXAMINATION GENERAL: The patient is LETHARGIC 05/21/2024 HEENT: Nonicteric sclerae, non traumatic HEART: Regular rate and rhythm with no murmurs LUNGS: Clear to auscultation bilaterally ABDOMEN: No acute issues, non tender GENITAL, RECTAL: deferred SKIN: No rash NEUROLOGIC: NFND EXTREMITIES: No edema ASSESSMENT SVT At presentation with heart rates in the 220 range With hemodynamic compromise, s/p cardioversion On pressors, 05/21/2024 HISTORY OF ATRIAL FIBRILLATION? Not on any anticoagulation Previous history of ablation x 2 SINUS ARRHYTHMIA/PACS On EKG post cardioversion with multiple pauses The setting of metoprolol use/vagal tone CORE MEASURES pending OTHER MEDICAL PROBLEMS reviewed PLAN 05/21/2024 pauses on telemetry are likely related to beta-jose and patient's lethargy and sedation. Will await eventual weaning off of the effect of beta- jose and will also wean off pressors as able. Current maps are over 75. Improving. Echocardiogram is ordered and pending. Sinus arrhythmia/PACs noted on current EKG. When more alert, will discuss long-term management of current condition with potentially considering repeat ablation/rhythm control agents. Will need records from [place]. 05/22/2024 On and off pressors, blood pressures are borderline. Currently on amiodarone for rhythm control and also on heparin for anticoagulation. No clinical issues with atrial fibrillation other, patient has a history of this. Blood cultures have been ordered for elevated white count and troponins were elevated as well likely in the setting of SVT. Acute kidney injury at presentation has improved. On statin and amiodarone.Start midodrine to keep off pressors and reduce tachycardia risk. ATTESTATION I was involved substantially in the care of this patient Number and complexity of problems addressed: 1 acute illness with systemic features Amount and or complexity of data Review of prior external note(s) from each unique source: 2+ Ordering of each unique test : 0 Review of the result(s) of each unique test: 2+ Assessment requiring an independent historian(s): No Independent interpretation of test performed by another MD/QHCP/appropriate source (not separately reported) : No Discussion of management or test interpretation with external MD/QHCP/appropriate source (not separately reported) : No Risk status (cardiac, billing related): Moderate Vitals/Labs Vital Signs Date Time Temp Pulse Resp B/P (MAP) Pulse Ox O2 Delivery O2 Flow Rate FiO2 05/22/24 08:30 69 26 97/49 (65) 98 05/22/24 07:57 Nasal Cannula* 2 28 05/22/24 07:00 98.1 Laboratory Tests 05/21/24 18:20 05/22/24 04:22 Medications Current Medications Sodium Chloride 1,000 ml @ As Directed STK-MED ONCE IV Last administered on 05/21/24at 18:59; Start 05/21/24 at 18:38; Stop 05/21/24 at 18:38; Status DC Midazolam HCl 2 mg STK-MED ONCE .ROUTE; Start 05/21/24 at 18:38; Stop 05/21/24 at 18:38; Status DC Midazolam HCl 5 mg ONCE ONCE IV Last administered on 05/21/24at 18:45; Start 05/21/24 at 19:00; Stop 05/21/24 at 19:01; Status DC Sodium Chloride 1,000 ml @ 999 mls/hr Q1H1M IV; Start 05/21/24 at 19:00; Stop 05/21/24 at 20:12; Status DC Midazolam HCl 10 mg STK-MED ONCE IV Last administered on 05/21/24at 19:00; Start 05/21/24 at 18:41; Stop 05/21/24 at 18:41; Status DC Midazolam HCl 5 mg ONCE ONCE IVP; Start 05/21/24 at 19:00; Stop 05/21/24 at 18:52; Status DC Metoprolol Tartrate 5 mg STK-MED ONCE IV Last administered on 05/21/24at 19:00; Start 05/21/24 at 18:46; Stop 05/21/24 at 18:46; Status DC Diltiazem HCl 125 mg STK-MED ONCE IV Last administered on 05/21/24at 18:59; Start 05/21/24 at 18:51; Stop 05/21/24 at 18:51; Status DC Phenylephrine HCl 10 mg/Sodium Chloride 250 ml @ 0 mls/hr PROTOCOL PRN IV Last administered on 05/21/24at 21:08; Start 05/21/24 at 19:30; Stop 05/22/24 at 00:27; Status DC Phenylephrine HCl 10 mg STK-MED ONCE IV; Start 05/21/24 at 19:10; Stop 05/21/24 at 19:14; Status DC Heparin Sodium/ Dextrose 250 ml @ 0 mls/hr PROTOCOL IV Last administered on 05/21/24at 20:10; Start 05/21/24 at 20:00; Stop 06/20/24 at 19:59 Heparin Sodium (Porcine) 6,000 unit ONCE ONCE IV Last administered on 05/21/24at 20:00; Start 05/21/24 at 20:00; Stop 05/21/24 at 20:01; Status DC Acetaminophen 650 mg Q6H PRN PO; Start 05/21/24 at 21:30; Stop 06/20/24 at 21:29 Acetaminophen 650 mg Q6H PRN RC; Start 05/21/24 at 21:30; Stop 06/20/24 at 21:29 Lactulose 20 gm Q6H PRN PO; Start 05/21/24 at 21:30; Stop 06/20/24 at 21:29 Docusate Sodium 100 mg BID PRN PO; Start 05/21/24 at 21:30; Stop 06/20/24 at 21:29 Temazepam 15 mg HS PRN PO; Start 05/21/24 at 21:30; Stop 06/20/24 at 21:29 Ondansetron HCl 4 mg Q6H PRN IVP; Start 05/21/24 at 21:30; Stop 06/20/24 at 21:29 Insulin Human Regular INSULIN SLIDING SCAL... ACHS SQ; Start 05/22/24 at 07:30; Stop 06/21/24 at 07:29 Magnesium Sulfate 50 ml @ 0 mls/hr PROTOCOL PRN IV Last administered on 05/21/24at 21:40; Start 05/21/24 at 21:30; Stop 06/20/24 at 21:29 Potassium Chloride 100 ml @ 100 mls/hr AD PRN IV; Start 05/21/24 at 21:30; Stop 06/20/24 at 21:29 Potassium Chloride 10 meq AD PRN PO; Start 05/21/24 at 21:30; Stop 06/20/24 at 21:29 Potassium Chloride 10 meq AD PRN PO; Start 05/21/24 at 21:30; Stop 06/20/24 at 21:29 Dextrose 50 ml AD PRN IV; Start 05/21/24 at 21:30; Stop 06/20/24 at 21:29 Glucagon 1 mg AD PRN IM; Start 05/21/24 at 21:30; Stop 06/20/24 at 21:29 Amiodarone HCl 360 mg/Dextrose 207.2 ml @ 33.3 mls/hr AD IV Last administered on 05/21/24at 23:25; Start 05/21/24 at 23:00; Stop 05/22/24 at 08:05; Status DC Amiodarone HCl 540 mg/Dextrose 310.8 ml @ 16.7 mls/hr [id number] IV Last administered on 05/22/24at 05:30; Start 05/22/24 at 05:00; Stop 06/21/24 at 04:59 Phenylephrine HCl 10 mg/Sodium Chloride 250 ml @ 0 mls/hr PROTOCOL PRN IV Last administered on 05/22/24at 00:34; Start 05/22/24 at 00:30; Stop 06/20/24 at 19:29 Aspirin 81 mg DAILY PO; Start 05/22/24 at 09:00; Stop 05/22/24 at 03:20; Status DC Atorvastatin Calcium 40 mg HS PO; Start 05/22/24 at 21:00; Stop 06/21/24 at 20:59 Pantoprazole Sodium 40 mg BID IVP Last administered on 05/22/24at 08:47; Start 05/22/24 at 09:00; Stop 06/21/24 at 08:59 SCAR JIMENES MD May 22, 2024 11:10
--- NOTE | 2024-05-22 14:02 | EKG ---
[facility] Test Date: 2024-05-22 Test Time: 12:49:20 Pat Name: KELLIE RICARDO Department: [facility] Room: 216 1 Gender: M Identification Technician: keyonna : 1960 Requested By: GAUTAM GUILLERMO [facility]: [id number] Reading MD: Gerald Fowler Measurements Intervals [place] Rate: 66 P: 21 FL: 178 QRS: 65 QRSD: 91 T: 0 QT: 383 QTc: 400 Interpretive Statements Sinus rhythm Compared to ECG 05/22/2024 06:10:54 T-wave abnormality no longer present Prolonged QT interval no longer present Electronically Signed On 05-23-2024 16:03:56 EVALUATOR by Gerald Fowler Please click the below link to view image of tracing.
[2024-05-22] MEDS: miDODRine HCL 5 MG TABLET PO SCH (14:27)
--- NOTE | 2024-05-22 14:51 | PN ---
[facility] PROGRESS NOTE Date Patient Seen: May 22, 2024 Time of Visit: 14:47 Supervising Physician: Dr. No Consulting physician Physician: Hospitalist group Outpatient Specialists: [ ] Inpatient Consults: Cardiology PROBLEM LIST: Acute coronary syndrome, POA Paroxysmal SVT, status post cardioversion x2, currently on heparin and amiodarone drip Acute hypoxic respiratory failure, POA Possible congestive heart failure, POA Atrial fibrillation with RVR NSTEMI, POA DM type 2, POA Obesity, BMI of 30.1, POA INTERVAL HISTORY: 05/22/2024: At the time of my evaluation, the patient was lying in bed. He is awake, alert and with appropriate responses. Vital signs today showed soft blood pressure systolic in the 90s. The patient is on nasal cannula 2 L. cumulative I's and O's shows a balance of -1108.1. CBC was notable for a increased WBC count of 17.0. Chemistry panel was notable for a elevated tropon in level with the trend of 160>> 945>> 563. Currently, no complaint of chest pain. The patient remains on a heparin drip and has a PTT of 61.5. Urinalysis showed no suspicion for urinary tract infection. Urine drug screen was positive for benzos. Serology shows a negative flu A and B and SARS-CoV-2. The patient remains on a amiodarone drip and is on midodrine5 mg t.i.d.. No other complaint REVIEW OF SYSTEMS: 12 point ROS reviewed with patient. Pertinent positives mentioned above. Otherwise negative. PHYSICAL EXAM: GENERAL: alert, weak, awake oriented x 3 HEENT: EOMI, Sclera non icteric, moist mucosa NECK: Supple, no JVD, trachea midline LUNGS: Clear breath sounds bilaterally. No wheezes HEART: Regular rate and rhythm. Normal S1 and S2, without murmurs ABD: Abdomen soft, nontender. Bowel sounds present EXT: No clubbing cyanosis or edema NEURO: Alert and oriented to person, follows commands Vital Signs (last 8hr) Date Time Temp Pulse Resp B/P (MAP) Pulse Ox O2 Delivery O2 Flow Rate FiO2 05/22/24 14:29 05/22/24 13:00 67 31 95/50 (65) 92 05/22/24 12:45 66 27 99/55 (70) 95 05/22/24 12:30 65 26 103/60 (74) 94 05/22/24 12:15 69 25 115/60 (78) 93 05/22/24 12:01 98.4 69 23 111/66 (81) 95 05/22/24 11:45 64 24 99/51 (67) 97 05/22/24 11:30 64 23 93/51 (65) 93 05/22/24 11:15 64 25 88/47 (61) 95 05/22/24 11:09 68 26 87/48 (61) 96 05/22/24 11:00 66 27 98/48 (65) 94 05/22/24 10:45 69 27 99/50 (66) 97 05/22/24 10:30 62 26 102/44 (63) 95 05/22/24 10:15 65 25 91/48 (62) 92 05/22/24 10:00 68 27 102/51 (68) 94 05/22/24 09:45 70 28 98/51 (67) 94 05/22/24 09:30 71 24 95/48 (64) 95 05/22/24 09:15 63 21 96/37 (56) 97 05/22/24 09:00 68 24 93/46 (62) 98 05/22/24 08:30 69 26 97/49 (65) 98 05/22/24 08:15 70 21 98/50 (66) 97 05/22/24 08:00 80 21 107/57 (74) 98 05/22/24 07:57 98 Nasal Cannula* 2 28 05/22/24 07:45 65 22 92/44 (60) 97 05/22/24 07:30 65 22 90/46 (61) 96 05/22/24 07:15 68 26 99/49 (66) 97 05/22/24 07:00 98.1 69 24 112/49 (70) 98 LABS: Hematology Labs: Test 05/22/24 04:22 05/21/24 18:20 Range/Units White Blood Count 17.0 H 4.8-10.8 K/uL Red Blood Count 5.04 4.50-6.20 MIL/uL Hemoglobin 14.1 14.0-18.0 g/dL Hematocrit 42.7 42-54 % Mean Corpuscular Volume 84.7 79-99 fL Mean Corpuscular Hemoglobin 28.0 27.0-33.0 pg Mean Corpuscular Hemoglobin Concent 33.0 32.0-36.0 g/dL Red Cell Distribution Width 12.9 11.0-15.5 % Platelet Count 312 130-400 K/uL Mean Platelet Volume 10.1 7.5-10.5 fL Nucleated Red Blood Cells 0.0 0.0-0.19 % Immature Granulocyte % (Auto) 0.6 0-1 % Neutrophils (%) (Auto) 89.1 H 40.0-77.0 % Lymphocytes (%) (Auto) 6.0 L 21.0-51.0 % Monocytes (%) (Auto) 3.7 3.0-13.0 % Eosinophils (%) (Auto) 0.2 0.0-8.0 % Basophils (%) (Auto) 0.4 0.0-5.0 % Neutrophils # (Auto) 16.0 H 1.8-7.7 K/uL Lymphocytes # (Auto) 1.1 1.0-4.8 K/uL Monocytes # (Auto) 0.7 0.1-1.0 K/uL Eosinophils # (Auto) 0.04 0.00-0.70 K/uL Basophils # (Auto) 0.07 0.00-0.20 K/uL Absolute Immature Granulocyte (auto 0.10 0-1 K/uL White Cell Morphology Comment See comments Chemistry Labs: Test 05/22/24 11:56 05/22/24 11:22 05/22/24 04:22 05/21/24 18:20 Range/Units Troponin I High Sensitivity 563 *H 4-75 ng/L Whole Blood Glucose 154 H 70-110 MG/DL Sodium Level 138 136-145 mmol/L Potassium Level 4.1 3.5-5.1 mmol/L Chloride Level 105 101-111 mmol/L Carbon Dioxide Level 27 21-32 mmol/L Blood Urea Nitrogen 20 H 7-18 mg/dL Creatinine 0.9 0.5-1.3 mg/dL Glomerular Filtration Rate Calc 95 >90 mL/min Random Glucose 139 H 70-105 mg/dL Hemoglobin A1c 8.7 H 4.0-6.0 % Estimated Average Glucose (eAG) 203 H 70-126 mg/dL Whole Blood Ketones Quantitative 0.9 H 0.0-0.6 mmol/L Total Calcium 8.7 8.5-10.1 mg/dL Phosphorus Level 4.3 2.5-4.9 mg/dL Magnesium Level 2.30 1.80-2.40 mg/dL Thyroid Stimulating Hormone (TSH) 1.28 0.36-3.74 uIU/mL Total Creatine Kinase 53 21-232 U/L B-Type Natriuretic Peptide 43 0-100 pg/mL Coagulation Labs: Test 05/22/24 11:56 05/21/24 18:20 Range/Units Activated Partial Thromboplast Time 61.5 #H 26.3-35.5 SEC Prothrombin Time 11.0 9.6-11.6 SEC Prothromb Time International Ratio 1.04 0.85-1.15 DIAGNOSTICS / RADIOLOGY RESULTS: [ ] PLAN 05/22/2024: For now, going to continue current management for the patient. 2D echo was ordered and is pending. We will follow the recommendation of the Cardiology team. We will repeat surveillance labs in a.m. and we will address any electrolyte imbalance issues. Because of the elevated WBCs, blood cultures were ordered x 2 and are in process. The patient is currently not on antibiotic therapy and remains afebrile. We will monitor the patient's progress and response to management. Continue to provide general supportive care, GI and DVT prophylaxis. Further orders per attending MD and hospital course. NEURO: Minimize central acting medications as possible. Fall Precautions. Well lighted room through the day and minimize interruptions through the night to prevent acute delirium. PULMONARY: Supplemental 02 as needed Titrate Fio2 to keep Spo2 > or = 90% DuoNebs and CPT as needed IS hourly while awake for pulmonary hygiene Out of bed to chair as tolerated CARDIOVASCULAR: Follow hemodynamics. Titrate vasopressor to keep MAP >65 or systolic blood pressure >95mmHg DIPS: Heparin, amiodarone, Antonio drip LINES: PIV GI & NUTRITION: NPO Continue nutritional support Aspirations precautions Prokinetic agents and laxatives as needed KIDNEYS & ELECTROLYTES: Strict monitoring of intake and output Daily weights Avoid nephrotoxic agents Monitor electrolytes and replace as needed Goal urine output of 30mL/hr or 0.5mL/kg/hr ENDOCRINE: Maintain blood glucose between 100-180 at all times. Insulin sliding scale for blood glucose management INFECTIOUS DISEASE: Trend temperature. Montes-culture if febrile. Micro: [ ] Antibiotics: [ ] HEMATOLOGY & COAGULATION: Monitor H&H. Keep Hgb > 7 Transfuse 1 unit of PRBC for Hgb < 7 Transfuse 1 pack of platelets of platelets < 20, 000 Watch for any signs and symptoms of bleeding SKIN: Pressure ulcer prevention per facility protocol Rehab: PT/OT Prophylaxis: GI: [ ] DVT: Heparin drip Code Status: Full Resuscitation Disposition: ICU Other: Total patient care time exceeds 35 minutes excluding all procedures. TANESHA CORDOBA NP May 22, 2024 14:51
--- NOTE | 2024-05-22 15:19 | PN ---
[facility] PROGRESS NOTE Date of Service: May 22, 2024 Time of Service: 15:16 SUBJECTIVE: 05/22 patient seen at bedside, no acute events overnight. Heart rate is better controlled by bedside he was still on amiodarone protocol, troponins mildly elevated. We will follow up with Cardiology recommendations. WBC improved from 17.9 down to 17.0, remainder of his labs are relatively unremarkable. REVIEW OF SYSTEMS 12-point ROS reviewed with patient. All pertinent positives mentioned above. Otherwise negative, noncontributory, or non-pertinent. PHYSICAL EXAM GENERAL APPEARANCE: The patient is awake, alert, and oriented, in no acute cardiopulmonary distress. NEUROLOGICAL: Cranial nerves II-XII grossly intact. Motor is 5/5 in bilateral upper and lower extremities proximal to distal. No sensory deficits. HEENT: Face is symmetric. Pupils are equal and reactive. Extraocular movements are intact. NECK: Supple. No JVD. No thyromegaly. No submental, submandibular, pre- /postauricular, occipital or supraclavicular lymphadenopathy. CHEST: Normal chest expansion. No Telemetry. LUNGS: Absence of any rales, rhonchi or any wheezing. CARDIOVASCULAR: Irregular, HR 70s BPM. S1 and S2 normal. No appreciable rubs, murmurs or gallops. ABDOMEN: Obese, Soft, nontender, and nondistended. There is no rebound, voluntary guarding, or rigidity. : Deferred. No Col[place]. EXTREMITIES: Non-edematous and not cyanotic. No clubbing. Good capillary refill. SKIN: No skin breakdown. Vital Signs (last 8hr) Date Time Temp Pulse Resp B/P (MAP) Pulse Ox O2 Delivery O2 Flow Rate FiO2 05/22/24 14:29 05/22/24 13:00 67 31 95/50 (65) 92 05/22/24 12:45 66 27 99/55 (70) 95 05/22/24 12:30 65 26 103/60 (74) 94 05/22/24 12:15 69 25 115/60 (78) 93 05/22/24 12:01 98.4 69 23 111/66 (81) 95 05/22/24 12:00 95 Nasal Cannula* 2 28 05/22/24 11:45 64 24 99/51 (67) 97 05/22/24 11:30 64 23 93/51 (65) 93 2/23/25 11:15 64 25 88/47 (61) 95 05/22/24 11:09 68 26 87/48 (61) 96 05/22/24 11:00 66 27 98/48 (65) 94 05/22/24 10:45 69 27 99/50 (66) 97 05/22/24 10:30 62 26 102/44 (63) 95 05/22/24 10:15 65 25 91/48 (62) 92 05/22/24 10:00 68 27 102/51 (68) 94 05/22/24 09:45 70 28 98/51 (67) 94 05/22/24 09:30 71 24 95/48 (64) 95 05/22/24 09:15 63 21 96/37 (56) 97 05/22/24 09:00 68 24 93/46 (62) 98 05/22/24 08:30 69 26 97/49 (65) 98 05/22/24 08:15 70 21 98/50 (66) 97 05/22/24 08:00 80 21 107/57 (74) 98 05/22/24 07:57 98 Nasal Cannula* 2 28 05/22/24 07:45 65 22 92/44 (60) 97 05/22/24 07:30 65 22 90/46 (61) 96 LABS: Laboratory: Test 05/22/24 11:56 05/22/24 11:22 05/22/24 04:22 05/22/24 01:02 Range/Units Activated Partial Thromboplast Time 61.5 #H 26.3-35.5 SEC Troponin I High Sensitivity 563 *H 4-75 ng/L Whole Blood Glucose 154 H 70-110 MG/DL White Blood Count 17.0 H 4.8-10.8 K/uL Red Blood Count 5.04 4.50-6.20 MIL/uL Hemoglobin 14.1 14.0-18.0 g/dL Hematocrit 42.7 42-54 % Mean Corpuscular Volume 84.7 79-99 fL Mean Corpuscular Hemoglobin 28.0 27.0-33.0 pg Mean Corpuscular Hemoglobin Concent 33.0 32.0-36.0 g/dL Red Cell Distribution Width 12.9 11.0-15.5 % Platelet Count 312 130-400 K/uL Mean Platelet Volume 10.1 7.5-10.5 fL Nucleated Red Blood Cells 0.0 0.0-0.19 % Sodium Level 138 136-145 mmol/L Potassium Level 4.1 3.5-5.1 mmol/L Chloride Level 105 101-111 mmol/L Carbon Dioxide Level 27 21-32 mmol/L Blood Urea Nitrogen 20 H 7-18 mg/dL Creatinine 0.9 0.5-1.3 mg/dL Glomerular Filtration Rate Calc 95 >90 mL/min Random Glucose 139 H 70-105 mg/dL Hemoglobin A1c 8.7 H 4.0-6.0 % Estimated Average Glucose (eAG) 203 H 70-126 mg/dL Whole Blood Ketones Quantitative 0.9 H 0.0-0.6 mmol/L Total Calcium 8.7 8.5-10.1 mg/dL Phosphorus Level 4.3 2.5-4.9 mg/dL Magnesium Level 2.30 1.80-2.40 mg/dL Thyroid Stimulating Hormone (TSH) 1.28 0.36-3.74 uIU/mL Urine Color COLORLESS YELLOW Urine Appearance CLEAR CLEAR Urine pH 5.0 5.0-8.0 Urine Specific [place]me 1.007 1.001-1.031 Urine Protein NEGATIVE NEGATIVE mg/dL Urine Glucose (UA) NEGATIVE NEGATIVE mg/dL Urine Ketones 5 H NEGATIVE mg/dL Urine Occult Blood NEGATIVE NEGATIVE Urine Nitrate NEGATIVE NEGATIVE Urine Bilirubin NEGATIVE NEGATIVE mg/dL Urine Urobilinogen 0.2 0.2-1.0 mg/dL Urine Leukocyte Esterase NEGATIVE NEGATIVE Kavya/uL Urine RBC 2-5 H 0-1 /HPF Urine WBC 0-1 0-1 /HPF Urine Squamous Epithelial Cells RARE 0-2 /HPF Urine Bacteria None None Seen /HPF Urine Opiates Screen NEGATIVE NEGATIVE Urine Barbiturates Screen NEGATIVE NEGATIVE Urine Phencyclidine Screen NEGATIVE NEGATIVE Urine Amphetamines Screen NEGATIVE NEGATIVE Urine Benzodiazepines Screen POSITIVE H NEGATIVE Urine Cocaine Screen NEGATIVE NEGATIVE Urine Marijuana (THC) Screen NEGATIVE NEGATIVE Test 05/22/24 00:58 05/21/24 18:20 Range/Units Influenza Type A Antigen Negative For Type A NEGATIVE Influenza Type B Antigen Negative For Type B NEGATIVE SARS-CoV-2, RNA, NAAT NEGATIVE SARS CoV-2 NEGATIVE Immature Granulocyte % (Auto) 0.6 0-1 % Neutrophils (%) (Auto) 89.1 H 40.0-77.0 % Lymphocytes (%) (Auto) 6.0 L 21.0-51.0 % Monocytes (%) (Auto) 3.7 3.0-13.0 % Eosinophils (%) (Auto) 0.2 0.0-8.0 % Basophils (%) (Auto) 0.4 0.0-5.0 % Neutrophils # (Auto) 16.0 H 1.8-7.7 K/uL Lymphocytes # (Auto) 1.1 1.0-4.8 K/uL Monocytes # (Auto) 0.7 0.1-1.0 K/uL Eosinophils # (Auto) 0.04 0.00-0.70 K/uL Basophils # (Auto) 0.07 0.00-0.20 K/uL Absolute Immature Granulocyte (auto 0.10 0-1 K/uL White Cell Morphology Comment See comments Prothrombin Time 11.0 9.6-11.6 SEC Prothromb Time International Ratio 1.04 0.85-1.15 Total Creatine Kinase 53 21-232 U/L B-Type Natriuretic Peptide 43 0-100 pg/mL Current Medications Medications (Trade) Dose Ordered Sig/Paco Route PRN Reason Start Time Stop Time Status Last Admin Dose Admin Acetaminophen (TYLenol 325MG TAB) 650 mg Q6H PRN PO FEVER/MILD PAIN LEVEL 1-3 05/21/24 21:30 06/20/24 21:29 Acetaminophen (TYLenol 650MG SUPPOSITORY) 650 mg Q6H PRN RC FEVER / MILD PAIN 1-3 IF NPO 05/21/24 21:30 06/20/24 21:29 Amiodarone HCl 360 mg/Dextrose 207.2 ml @ 33.3 mls/hr AD IV 05/21/24 23:00 05/22/24 08:05 DC 05/21/24 23:25 33.3 MLS/HR Amiodarone HCl 540 mg/Dextrose 310.8 ml @ 16.7 mls/hr [id number] IV 05/22/24 05:00 06/21/24 04:59 05/22/24 05:30 16.7 MLS/HR Aspirin (Aspirin 81mg Chew Tab) 81 mg DAILY PO 05/22/24 09:00 05/22/24 03:20 DC Atorvastatin Calcium (LIPItor 40MG) 40 mg HS PO 05/22/24 21:00 06/21/24 20:59 Dextrose (D50w) 50 ml AD PRN IV HYPOGLYCEMIA PROTOCOL 05/21/24 21:30 06/20/24 21:29 Docusate Sodium (COLace 100MG CAP) 100 mg BID PRN PO c 05/21/24 21:30 06/20/24 21:29 Glucagon (Glucagon 1mg Kit) 1 mg AD PRN IM HYPOGLYCEMIA PROTOCOL 05/21/24 21:30 06/20/24 21:29 Heparin Sodium/ Dextrose 250 ml @ 0 mls/hr PROTOCOL IV 05/21/24 20:00 06/20/24 19:59 05/22/24 14:12 12.61 MLS/HR Insulin Human Regular (humuLIN R 100 UNIT/ML 3ML) INSULIN SLIDING SCAL... ACHS SQ 05/22/24 07:30 06/21/24 07:29 Lactulose (Constulose 20gm/ 30ml Udcup) 20 gm Q6H PRN PO CONSTIPATION 05/21/24 21:30 06/20/24 21:29 Magnesium Sulfate 50 ml @ 0 mls/hr PROTOCOL PRN IV MAGNESIUM PROTOCOL 05/21/24 21:30 06/20/24 21:29 05/21/24 21:40 25 MLS/HR Midodrine (PROAMatine 5 MG TABLET) 5 mg TID PO 05/22/24 14:00 06/21/24 13:59 05/22/24 14:27 5 MG Ondansetron HCl (zoFRAN 4MG INJ) 4 mg Q6H PRN IVP NAUSEA/VOMITING 05/21/24 21:30 06/20/24 21:29 Pantoprazole Sodium (PROTonix 40MG INJ) 40 mg BID IVP 05/22/24 09:00 06/21/24 08:59 05/22/24 08:47 40 MG Phenylephrine HCl 10 mg/Sodium Chloride 250 ml @ 0 mls/hr PROTOCOL PRN IV PROTOCOL 05/21/24 19:30 05/22/24 00:27 DC 05/21/24 21:08 63.3 MLS/HR Phenylephrine HCl 10 mg/Sodium Chloride 250 ml @ 0 mls/hr PROTOCOL PRN IV PROTOCOL 05/22/24 00:30 06/20/24 19:29 05/22/24 00:34 38 MLS/HR Potassium Chloride 100 ml @ 100 mls/hr AD PRN IV POTASSIUM PROTOCOL 05/21/24 21:30 06/20/24 21:29 Potassium Chloride (K-Dur 10meq Sr Tab) 10 meq AD PRN PO POTASSIUM PROTOCOL 05/21/24 21:30 06/20/24 21:29 Potassium Chloride (KCl 10% Elixir 20meq/15ml) 10 meq AD PRN PO POTASSIUM PROTOCOL 05/21/24 21:30 06/20/24 21:29 Sodium Chloride 1,000 ml @ 999 mls/hr Q1H1M IV 05/21/24 19:00 05/21/24 20:12 DC Temazepam (restORIL 15 MG CAP) 15 mg HS PRN PO INSOMNIA/SLEEP 05/21/24 21:30 06/20/24 21:29 DIAGNOSTICS / RADIOLOGY: [ ] ASSESSMENT: Cardiogenic shock, resolved POA AFib with RVR, POA, s/p cardioversion on 05/21/24 by EMS and ED Hypotension, not responsive to IV fluids, in need of pressor Elevated troponin, POA Leukocytosis, POA Acute renal insufficiency, GFR 44 (no prior GFR to compare) Dehydration/ketonuria Diabetes mellitus with hyperglycemia Hypercholesteremia Obesity, BMI 30.1 PLAN: Admit to ICU with continuous telemetry monitoring and pulse oximetry monitoring. Continue amiodarone IV drip per protocol. Continue phenylephrine IV drip. Titrate to keep map above 65. Continue heparin IV drip per protocol. Cardiology was consulted appreciate recommendations Atorvastatin 40 mg p.o. daily. Glucometer checks a.c. and HS with insulin regular sliding scale per protocol. DVT and GI prophylaxis: Heparin and Protonix. Disposition: Pending Cardiology recommendations LANA FERRARI MD May 22, 2024 15:19
--- NOTE | 2024-05-22 16:50 | NUR ---
AMA After speaking to pt twice, at length, pt opted to leave AMA. visited with pt at 1645 to discuss pt's status. Despite this visit/conversation, pt remained adamant that he was leaving today. Pt aware that he had been receiving vasopressor support and that this med was being actively weaned to off by this RN. Pt aware that he had been receiving anticoagulation - rationale for this was explained to pt by . Pt aware that he had been receiving IV antiarrhythmic and that this med, by protocol, would be completed around midnight. Pt acknowledged understanding of information provided yet expressed his desire to leave AMA. Pt's spouse and pt's brother were both present for all conversations. Pt's stated that pt will be following up with his own EP MD in [place] and that she has been in contact with this physician. explained to that typically has a "low BP" and related that it is not unusual for 's blood pressure to by "94/58". Pt and spouse voice understanding of the risks of leaving AMA. AMA form signed by . PIV's x3 removed.
--- NOTE | 2024-05-22 17:22 | NUR ---
AMA Pt left with spouse. had been notified of pt's intent to leave AMA at 1640.
--- NOTE | 2024-05-22 17:37 | NUR ---
DCP Patient states lives with Teena Sanches, Spouse [phone] in a house with walk in shower. 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 States able to complete ADL's on his own. Denies medical devices other than a shower chair. Denies home health services, home care services or dialysis. PCP - Electrophysiology [employer] Pedro Pringle MD Pharmacy - [address] Upon discharge, Teena Sanches, Spouse [phone] drive him home to [place], [place] and will assist with care. Addendum: 05/22/24 at 1745 by MICHELLE BUTCHER RN CM Amended: Links added.
[2024-05-22] MEDS ORDERED: atorVAStatin 40 MG TABLET PO SCH (21:00)
== END 2024-05-22 17:22 | disposition left against medical advice (07) | DRG 280 ==
LOC: EDH 18:05 → EDHIP 18:06 → 2CH 21:45
PROVIDERS: ADMIT Internal Medicine; ATTEND Internal Medicine
DX: I21.4 Non-ST elevation (NSTEMI) myocardial infarction (principal); J96.01 Acute respiratory failure with hypoxia; R57.0 Cardiogenic shock; I47.19 Other supraventricular tachycardia; E78.00 Pure hypercholesterolemia, unspecified; E11.65 Type 2 diabetes mellitus with hyperglycemia; D72.829 Elevated white blood cell count, unspecified; E66.9 Obesity, unspecified; I48.91 Unspecified atrial fibrillation; N28.9 Disorder of kidney and ureter, unspecified; Z68.30 Body mass index [BMI] 30.0-30.9, adult; Z79.899 Other long term (current) drug therapy
CPT/HCPCS: 36415; 71045; 80048; 80305; 81001; 82010; 82550; 82948; 83036; 83735; 83880; 84100; 84443; 84484; 85025; 85027; 85610; 85730; 87040; 87635; 87804; 93005; 96374; 96375; 99285; G0378; J0282; J1644; J2250; J2371; J2470; J3475; J3490; J7030; J7050; J7060